=== PATIENT | male | born 1940 | race Caucasian/White ===

== ENCOUNTER 2020-06-22 22:00 | Observation (INO) | payer MEDICARE ==
[~2020-06-22] VITALS: Ht 172.7 cm; Wt 70.5 kg
[2020-06-22 22:23] LABS: BASOPHILS ABSOLUTE AUTO 0.04 K/mm3 (0.00-0.23); BASOPHILS PERCENT AUTO 0 % (0-2); EOSINOPHILS ABSOLUTE AUTO 0.17 K/mm3 (0.00-0.68); EOSINOPHILS PERCENT AUTO 2 % (0-6); Hematocrit 42.3 % (37.0-53.0); Hemoglobin 14.2 g/dL (13.5-17.5); IMMATURE GRAN ABSOLUTE AUTO 0.06 K/mm3 (0.00-0.10); IMMATURE GRAN PERCENT AUTO 1 % (0-1); LYMPHOCYTES ABSOLUTE AUTO 3.26 K/mm3 (0.84-5.20); LYMPHOCYTES PERCENT AUTO 30 % (21-46); MONOCYTES ABSOLUTE AUTO 1.23 K/mm3 (0.16-1.47); MONOCYTES PERCENT AUTO 11 % (4-13); Mean Corpuscular HGB 30.9 pg (26.0-34.0); Mean Corpuscular HGB Conc 33.6 g/dL (31.5-36.5); Mean Corpuscular Volume 92 fL (80-100); Mean Platelet Volume 8.9 fL (9.1-12.4); NEUTROPHILS PERCENT AUTO 57 % (41-73); Platelet Count 319 K/mm3 (150-400); Red Blood Cell Count 4.59 M/mm3 (4.30-5.90); White Blood Cell Count 11.06 K/mm3 (4.00-11.30)
[2020-06-22 22:43] LABS: Alanine Aminotransfer (ALT/SGP 28 U/L (12-78); Albumin, Blood 3.4 g/dL (3.4-5.0); Albumin/Globulin Ratio 0.9 (0.8-1.8); Alk Phos 93 U/L (50-136); Anion Gap 5 mmol/L (6-16); Aspartate Aminotrans (AST/SGOT 18 U/L (12-37); Bilirubin, Total 0.5 mg/dL (0.1-1.0); Blood Urea Nitrogen 18 mg/dL (8-24); Bun/Creatinine Ratio 20.6 (12.0-20.0); CO2, Blood 24 mmol/L (21-32); Calcium, Blood 8.8 mg/dL (8.5-10.1); Chloride, Blood 107 mmol/L (98-108); Creatinine, Blood 0.87 mg/dL (0.60-1.20); Globulin, Blood 3.6 g/dL (2.2-4.0); Glomerular Filtration Rate >60 (60-); Glucose, Blood 118 mg/dL (70-99); Potassium, Blood 3.8 mmol/L (3.5-5.5); Sodium, Blood 136 mmol/L (136-145); Troponin I <0.015 ng/mL (0.000-0.040)
--- NOTE | 2020-06-23 03:51 | NUR ---
SHIFT SUMMARY: PT ADMITTED TO MEDICAL UNIT FROM ED TONIGHT. AAOX4. ABLE TO COMMUNICATE NEEDS. TELE IN PLACE- AFIB W/ PVC'S 79. PT DENIES CHEST PAIN OR PALPATATIONS. STATES HE HAS PAIN IN HIS L CHEST W/DEEP BREATHING AND GENERAL CHEST SORENESS RESIDUAL FROM THE SEVERE PAIN HE EXPERIENCED PRIOR TO COMING TO THE HOSPITAL. UP INDEPENDENTLY IN ROOM. DENIES SOB. PT WILL BE NPO AT 4AM IN PREPARATION FOR STRESS TEST TODAY. WCTM.
[2020-06-23] MEDS ORDERED: METO25 PO (15:04)
[2020-06-23] MEDS ORDERED: ASPI325 PO (15:04)
--- NOTE | 2020-06-23 16:06 | NUR ---
PATIENT D/C'D HOME WITH . RX MEDICATIONS FAXED TO [facility]. DC INSTRUCTIONS AND EDUCATION DISCUSSED WITH PATIENT AND COPY PROVIDED. PATIENT TO MAKE FOLLOW UP APPT WITH PCP IN [place]. PATIENT DENIES ANY FURTHER QUESTIONS OR CONCERNS.
== END 2020-06-23 15:49 | disposition home or self-care (01) ==
LOC: ER 22:00 → MEDS 22:01 → ER 06-23 00:34 → MEDS 06-23 00:43
PROVIDERS: Emergency Medicine; ADMIT Family Medicine
DX: R07.9 Chest pain, unspecified (principal); I48.91 Unspecified atrial fibrillation; Z79.82 Long term (current) use of aspirin; Z87.891 Personal history of nicotine dependence
CPT/HCPCS: 36415; 71045; 71275; 74175; 78452; 80053; 83605; 83690; 83880; 84484; 85025; 93005; 93010; 93017; 96372; 96374-59; 99285-25; A9270; A9500; G0378; J0706; J1650; J2270; J2785; Q9967